=== PATIENT | male | born 1970 | race African-American/Black ===

== ENCOUNTER 2024-10-11 20:54 | Emergency (ER) | payer MEDICAID, OTHER ==
[~2024-10-11] VITALS: Ht 177.8 cm; Wt 79.0 kg
[2024-10-11 20:57] VITALS: BP 123/69; PULSE 107; RESP 16; TEMP 98.7; O2SAT 100
[2024-10-11] MEDS: CEFAZOLIN 1000MG PREMIX 50 ML IV ONE (21:15)
[2024-10-11] MEDS: TETANUS, DIPHTHERIA, PERTUSSIS VAC/PF 0.5ML (>10YR OLD) IM ONE (21:15)
== END 2024-10-12 00:50 ==
LOC: EDBD 20:54 → ER 20:54
DX: S01.01XA Laceration without foreign body of scalp, initial encounter (principal); F10.90 Alcohol use, unspecified, uncomplicated; I10 Essential (primary) hypertension; Y08.89XA Assault by other specified means, initial encounter; Y93.89 Activity, other specified; Y92.149 Unspecified place in prison as the place of occurrence of the external cause; Y99.8 Other external cause status; Y90.9 Presence of alcohol in blood, level not specified
CPT/HCPCS: 73562; 70450; 70486; 72125; 99284; 12001; Z7610; J0690

== ENCOUNTER 2024-10-20 09:17 | Emergency (ER) | payer MEDICAID, OTHER ==
[~2024-10-20] VITALS: Ht 180.3 cm; Wt 77.0 kg
[2024-10-20 09:31] VITALS: O2SAT 99
[2024-10-20 09:43] VITALS: BP 116/70; PULSE 81; RESP 18; TEMP 37.05852; O2SAT 99
== END 2024-10-20 09:57 | disposition home or self-care (01) ==
LOC: ER 09:17
DX: S01.91XD Laceration without foreign body of unspecified part of head, subsequent encounter (principal); Z48.02 Encounter for removal of sutures; X58.XXXD Exposure to other specified factors, subsequent encounter
CPT/HCPCS: 99281; Z7610 ×2

== ENCOUNTER 2025-01-16 21:02 | Emergency (ER) | payer MEDICAID ==
[~2025-01-16] VITALS: Ht 185.4 cm; Wt 72.2 kg
[2025-01-16 21:07] VITALS: BP 118/56; TEMP 36.8; O2SAT 100
[2025-01-16 21:10] VITALS: PULSE 99; RESP 16; O2SAT 99
[2025-01-16 21:45] LABS: BASOPHILS % 0.4 % (0.0-2.0); EOSINOPHILS % 1.8 % (0.0-5.0); HEMATOCRIT. 41.4 % (42.0-52.0); HEMOGLOBIN. 13.7 g/dL (14.0-18.0); LYMPHOCYTES % 40.7 % (20.0-50.0); MEAN CORPUSCULAR HEMOGLOBIN 31.4 pg (28.0-32.0); MEAN CORPUSCULAR HGB CONC 33.1 g/dL (31.0-37.0); MEAN PLATELET VOLUME 6.7 fl (7.4-10.4); MONOCYTES % 4.8 % (2.0-8.0); NEUTROPHILS % 52.3 % (40.0-76.0); PLATELET 323 x1000/uL (130-400); RED BLOOD CELL COUNT 4.36 mill/uL (4.7-6.1); RED CELL DISTRIBUTION WIDTH 13.1 % (11.6-14.6); WHITE BLOOD COUNT 9.9 x1000/uL (4.5-11.0)
[2025-01-16 21:53] LABS: CHLORIDE 107 mEq/L (98-107); POTASSIUM 3.7 mEq/L (3.5-5.1); SODIUM 140 mEq/L (136-145)
[2025-01-16 21:54] LABS: CARBON DIOXIDE 25 mEq/L (21-32)
[2025-01-16 21:55] LABS: CALCIUM 9.8 mg/dL (8.7-10.4)
[2025-01-16 21:59] LABS: CREATININE 0.8 mg/dL (0.6-1.3)
[2025-01-16 22:00] LABS: GLUCOSE 107 mg/dL (70-105); UREA NITROGEN BLOOD 7 mg/dL (9-23)
[2025-01-16 22:05] LABS: TROPONIN I HIGH SENSITIVITY < 4 ng/L (3.0-53)
== END 2025-01-17 01:12 | disposition left against medical advice (07) ==
LOC: ER 21:02
DX: R07.89 Other chest pain (principal); Z53.21 Procedure and treatment not carried out due to patient leaving prior to being seen by health care provider
CPT/HCPCS: 36415; 80048; 84484; 85025; 93005